=== PATIENT | male | born 1935 | race Caucasian/White ===

== ENCOUNTER 2018-03-08 12:35 | Emergency (ER) | payer MEDICARE, OTHER ==
[2018-03-08] MEDS: IBUPROFEN 600 MG TAB PO (14:14)
== END 2018-03-08 14:45 | disposition home or self-care (01) ==
LOC: E/R 12:35
DX: S20.211A Contusion of right front wall of thorax, initial encounter (principal); I10 Essential (primary) hypertension; W01.0XXA Fall on same level from slipping, tripping and stumbling without subsequent striking against object, initial encounter; Y92.9 Unspecified place or not applicable; Z79.82 Long term (current) use of aspirin
CPT/HCPCS: 71045; 99283-25

== ENCOUNTER 2018-05-11 14:20 | Emergency (ER) | payer MEDICARE, OTHER | END 2018-05-11 17:35 | disposition home or self-care (01) | LOC: FTE 14:20 | DX: S52.591A Other fractures of lower end of right radius, initial encounter for closed fracture (principal); I10 Essential (primary) hypertension; W01.0XXA Fall on same level from slipping, tripping and stumbling without subsequent striking against object, initial encounter; Y92.019 Unspecified place in single-family (private) house as the place of occurrence of the external cause | CPT/HCPCS: 29105; 71100; 73080-RT; 73090-RT; 73130-RT; 99284-25 ==

== ENCOUNTER 2018-05-12 09:52 | Emergency (ER) | payer MEDICARE, OTHER | END 2018-05-12 11:34 | disposition home or self-care (01) | LOC: FTE 09:52 | DX: S52.501D Unspecified fracture of the lower end of right radius, subsequent encounter for closed fracture with routine healing (principal); I10 Essential (primary) hypertension; W18.30XD Fall on same level, unspecified, subsequent encounter; Z79.82 Long term (current) use of aspirin | CPT/HCPCS: 29125; 73110-RT; 99283-25 ==

== ENCOUNTER 2018-10-30 14:28 | Emergency (ER) | payer MEDICARE, OTHER ==
[2018-10-30 15:30] LABS: ADD MAN DIFF? NO
[2018-10-30 15:32] LABS: WHITE BLOOD COUNT 3.7 10^3/ul (4.8-10.8)
[2018-10-30 15:32] LABS: BASOPHILS % 0.5 % (0.0-2.0); EOSINOPHILS # 0.1 10^3/ul (0.0-0.5); EOSINOPHILS % 2.4 % (0.0-7.0); HEMATOCRIT 32.2 % (42.0-52.0); HEMOGLOBIN 10.5 g/dl (14.0-18.0); MEAN CORPUSCULAR HEMOGLOBIN 31.4 pg (29.0-33.0); MEAN CORPUSCULAR HGB CONC 32.6 g/dl (32.0-37.0); MEAN CORPUSCULAR VOLUME 96.4 fl (82.0-101.0); MEAN PLATELET VOLUME 9.6 fl (7.4-10.4); MONOCYTE # 0.4 10^3/ul (0.3-0.9); MONOCYTES % 11.8 % (0.0-11.0); NEUTROPHIL # 2.2 10^3/ul (1.6-7.5); PLATELET COUNT 183 10^3/UL (140-415); RED BLOOD COUNT 3.34 10^6/ul (4.70-6.10); RED CELL DISTRIBUTION WIDTH 11.9 % (11.5-14.5)
[2018-10-30 15:55] LABS: ANION GAP 6 (5-13); BLOOD UREA NITROGEN 28 mg/dl (7-20); CALCIUM 8.5 mg/dl (8.4-10.2); CARBON DIOXIDE 34 mmol/L (21-31); CHLORIDE 94 mmol/L (97-110); CREATININE 1.12 mg/dl (0.61-1.24); GLUCOSE 112 mg/dl (70-220); PHENYTOIN (DILANTIN) 5.3 ug/ml (10.0-20.0); POTASSIUM 4.6 mmol/L (3.5-5.1); SODIUM 134 mmol/L (135-144)
[2018-10-30] MEDS: PHENYTOIN 100 MG CAP PO (16:32)
[2018-10-30 17:24] LABS: ADD UMIC NO; UR ASCORBIC ACID 20 mg/dL (NEGATIVE); UR BILIRUBIN (Dip) NEGATIVE (NEGATIVE); UR BLOOD (Dip) NEGATIVE (NEGATIVE); UR CLARITY CLEAR (CLEAR); UR COLOR STRAW (YELLOW); UR GLUCOSE (Dip) NEGATIVE (NEGATIVE); UR KETONES (Dip) NEGATIVE (NEGATIVE); UR LEUKOCYTE ESTERASE (Dip) NEGATIVE Leu/ul (NEGATIVE); UR NITRITE (Dip) NEGATIVE (NEGATIVE); UR SPECIFIC GRAVITY (Dip) 1.009 (1.003-1.030); UR TOTAL PROTEIN (Dip) NEGATIVE (NEGATIVE); UR UROBILINOGEN (Dip) NEGATIVE (NEGATIVE)
[2018-10-31 01:37] LABS: PHENOBARBITAL <5.0 mg/L (15.0-40.0)
== END 2018-10-30 18:24 | disposition home or self-care (01) ==
LOC: E/R 14:28
DX: G40.909 Epilepsy, unspecified, not intractable, without status epilepticus (principal); I10 Essential (primary) hypertension; R89.2 Abnormal level of other drugs, medicaments and biological substances in specimens from other organs, systems and tissues; R40.2142 Coma scale, eyes open, spontaneous, at arrival to emergency department; R40.2362 Coma scale, best motor response, obeys commands, at arrival to emergency department; R40.2252 Coma scale, best verbal response, oriented, at arrival to emergency department; Z79.82 Long term (current) use of aspirin
CPT/HCPCS: 36415; 80048; 80184; 80185; 81003; 82962; 85025; 93005; 99284-25

== ENCOUNTER 2018-12-07 15:08 | Emergency (ER) | payer MEDICARE, OTHER | END 2018-12-07 19:22 | disposition home or self-care (01) | LOC: E/R 15:08 | DX: S00.03XA Contusion of scalp, initial encounter (principal); I10 Essential (primary) hypertension; W01.198A Fall on same level from slipping, tripping and stumbling with subsequent striking against other object, initial encounter; Y92.9 Unspecified place or not applicable; Z79.82 Long term (current) use of aspirin | CPT/HCPCS: 70450; 72125; 99284-25 ==

== ENCOUNTER 2018-12-13 11:56 | Inpatient (IN) | payer MEDICARE, OTHER ==
[2018-12-13 12:51] LABS: ADD MAN DIFF? NO
[2018-12-13 12:53] LABS: BASOPHILS % 0.6 % (0.0-2.0); EOSINOPHILS # 0.1 10^3/ul (0.0-0.5); EOSINOPHILS % 1.6 % (0.0-7.0); HEMATOCRIT 31.7 % (42.0-52.0); HEMOGLOBIN 10.2 g/dl (14.0-18.0); LYMPHOCYTES % 18.6 % (15.0-51.0); MEAN CORPUSCULAR HEMOGLOBIN 31.3 pg (29.0-33.0); MEAN CORPUSCULAR HGB CONC 32.2 g/dl (32.0-37.0); MEAN CORPUSCULAR VOLUME 97.2 fl (82.0-101.0); MEAN PLATELET VOLUME 9.2 fl (7.4-10.4); MONOCYTE # 0.6 10^3/ul (0.3-0.9); MONOCYTES % 11.2 % (0.0-11.0); NEUTROPHIL # 3.5 10^3/ul (1.6-7.5); NEUTROPHILS % 67.8 % (39.0-77.0); PLATELET COUNT 202 10^3/UL (140-415); RED BLOOD COUNT 3.26 10^6/ul (4.70-6.10)
[2018-12-13 12:53] LABS: WHITE BLOOD COUNT 5.1 10^3/ul (4.8-10.8)
[2018-12-13 13:12] LABS: ALANINE AMINOTRANSFERASE 19 IU/L (13-69); ALBUMIN 3.9 g/dl (3.3-4.9); ALBUMIN/GLOBULIN RATIO 1.39; ALKALINE PHOSPHATASE 93 IU/L (42-121); ANION GAP 10 (5-13); ASPARTATE AMINO TRANSFERASE 21 IU/L (15-46); BILIRUBIN,INDIRECT 0.1 mg/dl (0-1.1); BILIRUBIN,TOTAL 0.1 mg/dl (0.2-1.3); BLOOD UREA NITROGEN 27 mg/dl (7-20); CALCIUM 8.3 mg/dl (8.4-10.2); CARBON DIOXIDE 30 mmol/L (21-31); CHLORIDE 97 mmol/L (97-110); CREATININE 1.07 mg/dl (0.61-1.24); GLUCOSE 96 mg/dl (70-220); INR 1.07; POTASSIUM 4.1 mmol/L (3.5-5.1); PT RATIO 1.1; SODIUM 137 mmol/L (135-144); TOTAL PROTEIN 6.7 g/dl (6.1-8.1)
[2018-12-13 13:13] LABS: PARTIAL THROMBOPLASTIN TIME 28.3 Sec (23.0-35.0)
[2018-12-13 13:23] LABS: TROPONIN-I < 0.012 ng/ml (0.000-0.120)
[2018-12-13] MEDS ORDERED: ACETAMINOPHEN 325 MG TAB PO (14:30)
[2018-12-13] MEDS ORDERED: ONDANSETRON 4 MG INJ IV (14:30)
[2018-12-13 16:19] LABS: PHENYTOIN (DILANTIN) 34.4 ug/ml (10.0-20.0)
[2018-12-13] MEDS: FUROSEMIDE 40 MG TAB PO (21:00)
[2018-12-13] MEDS: ATORVASTATIN 10 MG TAB PO (21:00)
[2018-12-13] MEDS: LEVETIRACETAM 500 MG TAB PO (21:00)
[2018-12-13] MEDS: FAMOTIDINE 20 MG TAB PO (21:00)
[2018-12-13] MEDS: TAMSULOSIN (SR) 0.4 MG CAP PO (21:00)
[2018-12-13] MEDS: METOPROLOL 50 MG TAB PO (21:00)
[2018-12-14 01:26] LABS: ADD UMIC NO; UR ASCORBIC ACID NEGATIVE (NEGATIVE); UR BILIRUBIN (Dip) NEGATIVE (NEGATIVE); UR BLOOD (Dip) NEGATIVE (NEGATIVE); UR CLARITY CLEAR (CLEAR); UR COLOR STRAW (YELLOW); UR GLUCOSE (Dip) NEGATIVE (NEGATIVE); UR KETONES (Dip) NEGATIVE (NEGATIVE); UR LEUKOCYTE ESTERASE (Dip) NEGATIVE Leu/ul (NEGATIVE); UR NITRITE (Dip) NEGATIVE (NEGATIVE); UR SPECIFIC GRAVITY (Dip) 1.006 (1.003-1.030); UR TOTAL PROTEIN (Dip) NEGATIVE (NEGATIVE); UR UROBILINOGEN (Dip) NEGATIVE (NEGATIVE)
[2018-12-14 01:54] LABS: SODIUM,URINE RANDOM 50 mmol/L (30-90)
[2018-12-14 01:54] LABS: CREATININE,URINE RANDOM 24.71 mg/dl (20-370)
[2018-12-14 06:37] LABS: ADD MAN DIFF? NO
[2018-12-14 06:43] LABS: BASOPHILS % 0.4 % (0.0-2.0); EOSINOPHILS # 0.1 10^3/ul (0.0-0.5); EOSINOPHILS % 2.2 % (0.0-7.0); HEMATOCRIT 32.5 % (42.0-52.0); HEMOGLOBIN 10.6 g/dl (14.0-18.0); LYMPHOCYTES # 1.4 10^3/ul (0.8-2.9); LYMPHOCYTES % 31.3 % (15.0-51.0); MEAN CORPUSCULAR HEMOGLOBIN 31.3 pg (29.0-33.0); MEAN CORPUSCULAR HGB CONC 32.6 g/dl (32.0-37.0); MEAN CORPUSCULAR VOLUME 95.9 fl (82.0-101.0); MEAN PLATELET VOLUME 9.6 fl (7.4-10.4); MONOCYTE # 0.5 10^3/ul (0.3-0.9); MONOCYTES % 10.4 % (0.0-11.0); NEUTROPHIL # 2.6 10^3/ul (1.6-7.5); NEUTROPHILS % 55.5 % (39.0-77.0); PLATELET COUNT 222 10^3/UL (140-415); RED BLOOD COUNT 3.39 10^6/ul (4.70-6.10); RED CELL DISTRIBUTION WIDTH 12.1 % (11.5-14.5)
[2018-12-14 06:43] LABS: WHITE BLOOD COUNT 4.6 10^3/ul (4.8-10.8)
[2018-12-14 06:59] LABS: ANION GAP 7 (5-13); BLOOD UREA NITROGEN 29 mg/dl (7-20); CALCIUM 8.3 mg/dl (8.4-10.2); CARBON DIOXIDE 32 mmol/L (21-31); CHLORIDE 99 mmol/L (97-110); CREATININE 1.08 mg/dl (0.61-1.24); GLUCOSE 95 mg/dl (70-220); MAGNESIUM 2.4 mg/dl (1.7-2.5); PHOSPHORUS 4.2 mg/dl (2.5-4.9); POTASSIUM 3.9 mmol/L (3.5-5.1); SODIUM 138 mmol/L (135-144)
[2018-12-14] MEDS: METOPROLOL 50 MG TAB PO ×2 (09:00→20:02)
[2018-12-14] MEDS: ASPIRIN (EC) 81 MG TAB PO (09:00)
[2018-12-14] MEDS: ASCORBIC ACID 500 MG TAB PO (09:07)
[2018-12-14] MEDS: LEVETIRACETAM 500 MG TAB PO ×2 (09:08→20:02)
[2018-12-14] MEDS: DOCUSATE SODIUM 100 MG CAP PO (09:08)
[2018-12-14] MEDS: DONEPEZIL 5 MG TAB PO (09:09)
[2018-12-14] MEDS: FAMOTIDINE 20 MG TAB PO ×2 (09:09→20:02)
[2018-12-14] MEDS: FUROSEMIDE 40 MG TAB PO ×2 (09:09→20:03)
[2018-12-14] MEDS: DIGOXIN 0.125 MG TAB PO (13:37)
[2018-12-14 19:29] LABS: PHENYTOIN (DILANTIN) 30.4 ug/ml (10.0-20.0)
[2018-12-14] MEDS: TAMSULOSIN (SR) 0.4 MG CAP PO (20:02)
[2018-12-14] MEDS: ATORVASTATIN 10 MG TAB PO (20:03)
[2018-12-15 06:54] LABS: PHENYTOIN (DILANTIN) 25.2 ug/ml (10.0-20.0)
[2018-12-15 07:06] LABS: ANION GAP 10 (5-13); BLOOD UREA NITROGEN 29 mg/dl (7-20); CALCIUM 8.5 mg/dl (8.4-10.2); CARBON DIOXIDE 30 mmol/L (21-31); CHLORIDE 99 mmol/L (97-110); CREATININE 1.02 mg/dl (0.61-1.24); GLUCOSE 94 mg/dl (70-220); MAGNESIUM 2.3 mg/dl (1.7-2.5); PHOSPHORUS 4.3 mg/dl (2.5-4.9); POTASSIUM 4.3 mmol/L (3.5-5.1); SODIUM 139 mmol/L (135-144)
[2018-12-15] MEDS: METOPROLOL 50 MG TAB PO ×2 (09:00→21:24)
[2018-12-15] MEDS: DONEPEZIL 5 MG TAB PO (09:04)
[2018-12-15] MEDS: FAMOTIDINE 20 MG TAB PO ×2 (09:04→21:23)
[2018-12-15] MEDS: ASPIRIN (EC) 81 MG TAB PO (09:04)
[2018-12-15] MEDS: ASCORBIC ACID 500 MG TAB PO (09:04)
[2018-12-15] MEDS: LEVETIRACETAM 500 MG TAB PO ×2 (09:04→21:23)
[2018-12-15] MEDS: DOCUSATE SODIUM 100 MG CAP PO (09:04)
[2018-12-15] MEDS: FUROSEMIDE 40 MG TAB PO ×2 (09:05→21:23)
[2018-12-15] MEDS: DIGOXIN 0.125 MG TAB PO (12:43)
[2018-12-15] MEDS: SOD CHLORIDE 0.9% 1,000 ML IV (16:18)
[2018-12-15] MEDS: ATORVASTATIN 10 MG TAB PO (21:21)
[2018-12-15] MEDS: TAMSULOSIN (SR) 0.4 MG CAP PO (21:23)
[2018-12-16 05:30] LABS: ADD MAN DIFF? NO
[2018-12-16] MEDS: SOD CHLORIDE 0.9% 1,000 ML IV (05:30)
[2018-12-16 05:49] LABS: BASOPHILS % 0.6 % (0.0-2.0); EOSINOPHILS # 0.1 10^3/ul (0.0-0.5); EOSINOPHILS % 2.5 % (0.0-7.0); HEMATOCRIT 33.5 % (42.0-52.0); LYMPHOCYTES # 1.4 10^3/ul (0.8-2.9); LYMPHOCYTES % 28.5 % (15.0-51.0); MEAN CORPUSCULAR HEMOGLOBIN 31.7 pg (29.0-33.0); MEAN CORPUSCULAR HGB CONC 32.8 g/dl (32.0-37.0); MEAN CORPUSCULAR VOLUME 96.5 fl (82.0-101.0); MEAN PLATELET VOLUME 9.7 fl (7.4-10.4); MONOCYTE # 0.5 10^3/ul (0.3-0.9); MONOCYTES % 11.2 % (0.0-11.0); NEUTROPHIL # 2.8 10^3/ul (1.6-7.5); PLATELET COUNT 234 10^3/UL (140-415); RED BLOOD COUNT 3.47 10^6/ul (4.70-6.10)
[2018-12-16 05:49] LABS: WHITE BLOOD COUNT 4.8 10^3/ul (4.8-10.8)
[2018-12-16 06:07] LABS: ANION GAP 7 (5-13); BLOOD UREA NITROGEN 25 mg/dl (7-20); CALCIUM 8.6 mg/dl (8.4-10.2); CARBON DIOXIDE 32 mmol/L (21-31); CHLORIDE 101 mmol/L (97-110); CREATININE 1.02 mg/dl (0.61-1.24); GLUCOSE 97 mg/dl (70-220); MAGNESIUM 2.3 mg/dl (1.7-2.5); PHOSPHORUS 4.4 mg/dl (2.5-4.9); POTASSIUM 4.9 mmol/L (3.5-5.1); SODIUM 140 mmol/L (135-144)
[2018-12-16] MEDS: FAMOTIDINE 20 MG TAB PO ×2 (08:51→21:04)
[2018-12-16] MEDS: ASCORBIC ACID 500 MG TAB PO (08:51)
[2018-12-16] MEDS: ASPIRIN (EC) 81 MG TAB PO (08:52)
[2018-12-16] MEDS: LEVETIRACETAM 500 MG TAB PO ×2 (08:52→21:03)
[2018-12-16] MEDS: DOCUSATE SODIUM 100 MG CAP PO (08:52)
[2018-12-16] MEDS: METOPROLOL 50 MG TAB PO (08:53)
[2018-12-16] MEDS: DONEPEZIL 5 MG TAB PO (08:54)
[2018-12-16] MEDS: FUROSEMIDE 20 MG TAB PO ×2 (09:00→17:59)
[2018-12-16] MEDS: DIGOXIN 0.125 MG TAB PO (13:05)
[2018-12-16 14:52] LABS: PHENYTOIN (DILANTIN) 17.6 ug/ml (10.0-20.0)
[2018-12-16 16:16] LABS: CREATININE, RANDOM URINE 26 mg/dL (20-320); MICROALBUMIN 0.3 mg/dL; MICROALBUMIN/CREATININE RATIO 12 (<30)
[2018-12-16] MEDS: ATORVASTATIN 10 MG TAB PO (21:03)
[2018-12-16] MEDS: TAMSULOSIN (SR) 0.4 MG CAP PO (21:04)
[2018-12-16] MEDS: METOPROLOL 25 MG TAB PO (21:06)
[2018-12-17 05:04] LABS: ADD MAN DIFF? NO
[2018-12-17 05:24] LABS: WHITE BLOOD COUNT 4.6 10^3/ul (4.8-10.8)
[2018-12-17 05:24] LABS: BASOPHILS % 0.7 % (0.0-2.0); EOSINOPHILS # 0.1 10^3/ul (0.0-0.5); HEMATOCRIT 32.2 % (42.0-52.0); HEMOGLOBIN 10.4 g/dl (14.0-18.0); LYMPHOCYTES # 1.5 10^3/ul (0.8-2.9); LYMPHOCYTES % 32.3 % (15.0-51.0); MEAN CORPUSCULAR HEMOGLOBIN 31.3 pg (29.0-33.0); MEAN CORPUSCULAR HGB CONC 32.3 g/dl (32.0-37.0); MEAN PLATELET VOLUME 9.7 fl (7.4-10.4); MONOCYTE # 0.6 10^3/ul (0.3-0.9); MONOCYTES % 11.9 % (0.0-11.0); NEUTROPHIL # 2.4 10^3/ul (1.6-7.5); NEUTROPHILS % 52.1 % (39.0-77.0); PLATELET COUNT 227 10^3/UL (140-415); RED BLOOD COUNT 3.32 10^6/ul (4.70-6.10); RED CELL DISTRIBUTION WIDTH 12.2 % (11.5-14.5)
[2018-12-17 05:26] LABS: ALANINE AMINOTRANSFERASE 18 IU/L (13-69); ALBUMIN 3.4 g/dl (3.3-4.9); ALBUMIN/GLOBULIN RATIO 1.21; ALKALINE PHOSPHATASE 97 IU/L (42-121); ANION GAP 8 (5-13); ASPARTATE AMINO TRANSFERASE 20 IU/L (15-46); BILIRUBIN,INDIRECT 0.1 mg/dl (0-1.1); BILIRUBIN,TOTAL 0.1 mg/dl (0.2-1.3); BLOOD UREA NITROGEN 25 mg/dl (7-20); CALCIUM 8.4 mg/dl (8.4-10.2); CARBON DIOXIDE 30 mmol/L (21-31); CHLORIDE 101 mmol/L (97-110); CHOL/HDL RATIO 1.7 RATIO; CHOLESTEROL 142 mg/dl (100-200); CREATININE 1.06 mg/dl (0.61-1.24); GLUCOSE 101 mg/dl (70-220); HDL CHOLESTEROL 82 mg/dl (31-75); LDL CHOLESTEROL,CALCULATED 54 mg/dl; POTASSIUM 3.8 mmol/L (3.5-5.1); SODIUM 139 mmol/L (135-144); TOTAL PROTEIN 6.2 g/dl (6.1-8.1); TRIGLYCERIDES 30 mg/dl (0-149)
[2018-12-17 05:32] LABS: B-TYPE NATRIURETIC PEPTIDE 271 PG/ML (0-450)
[2018-12-17 05:39] LABS: FREE T4 (FREE THYROXINE) 0.94 ng/dl (0.85-1.93)
[2018-12-17 06:21] LABS: DIGOXIN 1.1 ng/ml (1.0-2.0)
[2018-12-17] MEDS: FUROSEMIDE 20 MG TAB PO ×2 (06:24→17:59)
[2018-12-17 06:28] LABS: PHENYTOIN (DILANTIN) 14.4 ug/ml (10.0-20.0)
[2018-12-17 06:47] LABS: MAGNESIUM 2.3 mg/dl (1.7-2.5)
[2018-12-17 06:47] LABS: PHOSPHORUS 4.3 mg/dl (2.5-4.9)
[2018-12-17] MEDS: ASPIRIN (EC) 81 MG TAB PO (08:22)
[2018-12-17] MEDS: DOCUSATE SODIUM 100 MG CAP PO (08:22)
[2018-12-17] MEDS: LEVETIRACETAM 500 MG TAB PO ×2 (08:22→21:03)
[2018-12-17] MEDS: FAMOTIDINE 20 MG TAB PO ×2 (08:22→21:04)
[2018-12-17] MEDS: ASCORBIC ACID 500 MG TAB PO (08:22)
[2018-12-17] MEDS: DONEPEZIL 5 MG TAB PO (08:23)
[2018-12-17] MEDS: METOPROLOL 25 MG TAB PO ×2 (08:24→21:05)
[2018-12-17] MEDS ORDERED: PHENYTOIN 100 MG CAP PO (09:00)
[2018-12-17] MEDS ORDERED: PHENYTOIN 50 MG CHEW PO (09:00)
[2018-12-17] MEDS: PHENYTOIN (100 MG/4 ML) CUP PO ×2 (12:06→21:01)
[2018-12-17] MEDS ORDERED: NA PHOSPHATE/BIPHOS 133 ML ENEMA PR (14:00)
[2018-12-17] MEDS: TAMSULOSIN (SR) 0.4 MG CAP PO (21:03)
[2018-12-17] MEDS: ATORVASTATIN 10 MG TAB PO (21:03)
[2018-12-18 06:18] LABS: PHENYTOIN (DILANTIN) 14.4 ug/ml (10.0-20.0)
[2018-12-18] MEDS: FUROSEMIDE 20 MG TAB PO ×2 (06:40→17:49)
[2018-12-18] MEDS: FAMOTIDINE 20 MG TAB PO ×2 (08:28→21:29)
[2018-12-18] MEDS: ASCORBIC ACID 500 MG TAB PO (08:28)
[2018-12-18] MEDS: LEVETIRACETAM 500 MG TAB PO ×2 (08:28→21:30)
[2018-12-18] MEDS: ASPIRIN (EC) 81 MG TAB PO (08:28)
[2018-12-18] MEDS: DOCUSATE SODIUM 100 MG CAP PO (08:28)
[2018-12-18] MEDS: METOPROLOL 25 MG TAB PO ×2 (08:29→21:30)
[2018-12-18] MEDS: DONEPEZIL 5 MG TAB PO (08:29)
[2018-12-18] MEDS: PHENYTOIN (100 MG/4 ML) CUP PO ×2 (08:30→21:28)
[2018-12-18] MEDS: DIGOXIN 0.125 MG TAB PO (12:29)
[2018-12-18] MEDS: ATORVASTATIN 10 MG TAB PO (21:29)
[2018-12-18] MEDS: TAMSULOSIN (SR) 0.4 MG CAP PO (21:30)
[2018-12-19] MEDS: FUROSEMIDE 20 MG TAB PO (06:01)
[2018-12-19] MEDS: LEVETIRACETAM 500 MG TAB PO (08:24)
[2018-12-19] MEDS: FAMOTIDINE 20 MG TAB PO (08:28)
[2018-12-19] MEDS: ASPIRIN (EC) 81 MG TAB PO (08:28)
[2018-12-19] MEDS: METOPROLOL 25 MG TAB PO (08:28)
[2018-12-19] MEDS: DONEPEZIL 5 MG TAB PO (08:29)
[2018-12-19] MEDS: PHENYTOIN (100 MG/4 ML) CUP PO (08:29)
== END 2018-12-19 13:56 | DRG 310 ==
LOC: 6WM 12-15 15:39 → E/R 11:56 → PP2 14:17
DX: I44.0 Atrioventricular block, first degree (principal); R00.1 Bradycardia, unspecified; T42.0X5A Adverse effect of hydantoin derivatives, initial encounter; S00.03XA Contusion of scalp, initial encounter; W19.XXXA Unspecified fall, initial encounter; G40.909 Epilepsy, unspecified, not intractable, without status epilepticus; E78.5 Hyperlipidemia, unspecified; I11.0 Hypertensive heart disease with heart failure; I50.9 Heart failure, unspecified; F42.9 Obsessive-compulsive disorder, unspecified; G62.9 Polyneuropathy, unspecified; R26.89 Other abnormalities of gait and mobility; N40.0 Benign prostatic hyperplasia without lower urinary tract symptoms; D64.9 Anemia, unspecified
CPT/HCPCS: 36415; 70450; 71045; 80048; 80053; 80061; 80162; 80185; 81003; 82043; 83735; 83880; 84100; 84155; 84300; 84439; 84443; 84484; 85025; 85610; 85730; 93005; 93306; 97162; 99285-25

== ENCOUNTER 2019-02-11 19:22 | Emergency (ER) | payer MEDICARE, OTHER ==
[2019-02-11 20:03] LABS: ADD MAN DIFF? NO
[2019-02-11] MEDS: LEVETIRACETAM 500 MG (PMX) 100 ML IVPB (20:07)
[2019-02-11 20:10] LABS: WHITE BLOOD COUNT 6.1 10^3/ul (4.8-10.8)
[2019-02-11 20:10] LABS: BASOPHILS % 0.7 % (0.0-2.0); EOSINOPHILS # 0.1 10^3/ul (0.0-0.5); EOSINOPHILS % 1.6 % (0.0-7.0); HEMATOCRIT 36.7 % (42.0-52.0); HEMOGLOBIN 11.9 g/dl (14.0-18.0); LYMPHOCYTES # 1.6 10^3/ul (0.8-2.9); LYMPHOCYTES % 26.1 % (15.0-51.0); MEAN CORPUSCULAR HEMOGLOBIN 31.2 pg (29.0-33.0); MEAN CORPUSCULAR HGB CONC 32.4 g/dl (32.0-37.0); MEAN CORPUSCULAR VOLUME 96.1 fl (82.0-101.0); MONOCYTE # 0.5 10^3/ul (0.3-0.9); MONOCYTES % 8.3 % (0.0-11.0); NEUTROPHIL # 3.9 10^3/ul (1.6-7.5); NUCLEATED RED BLOOD CELLS% 0.3 /100WBC (0.0-0.0); PLATELET COUNT 208 10^3/UL (140-415); RED BLOOD COUNT 3.82 10^6/ul (4.70-6.10); RED CELL DISTRIBUTION WIDTH 12.4 % (11.5-14.5)
[2019-02-11 20:30] LABS: DIGOXIN < 0.4 ng/ml (1.0-2.0)
[2019-02-11 20:31] LABS: ANION GAP 8 (5-13); BLOOD UREA NITROGEN 20 mg/dl (7-20); CALCIUM 8.6 mg/dl (8.4-10.2); CARBON DIOXIDE 29 mmol/L (21-31); CHLORIDE 104 mmol/L (97-110); CREATININE 0.97 mg/dl (0.61-1.24); GLUCOSE 110 mg/dl (70-220); SODIUM 141 mmol/L (135-144)
[2019-02-11 20:33] LABS: PHENYTOIN (DILANTIN) < 3.0 ug/ml (10.0-20.0)
[2019-02-11] MEDS ORDERED: LEVETIRACETAM 500 MG (PMX) 100 ML IVPB (21:30)
[2019-02-11] MEDS: LEVETIRACETAM IV 250 MG in DEXTROSE 5% 100 ML IVPB (22:53)
[2019-02-11] MEDS: PHENYTOIN 100 MG CAP PO (22:56)
[2019-02-13 02:22] LABS: PHENOBARBITAL <5.0 mg/L (15.0-40.0)
== END 2019-02-12 02:30 | disposition home or self-care (01) ==
LOC: E/R 02-12 02:30
DX: G40.909 Epilepsy, unspecified, not intractable, without status epilepticus (principal); D64.9 Anemia, unspecified; R89.2 Abnormal level of other drugs, medicaments and biological substances in specimens from other organs, systems and tissues; R40.2142 Coma scale, eyes open, spontaneous, at arrival to emergency department; R40.2252 Coma scale, best verbal response, oriented, at arrival to emergency department; R40.2362 Coma scale, best motor response, obeys commands, at arrival to emergency department; I50.9 Heart failure, unspecified; Z79.82 Long term (current) use of aspirin
CPT/HCPCS: 36415; 80048; 80162; 80184; 80185; 85025; 96374; 96376; 99284-25